=== PATIENT | male | born 1975 | race Caucasian/White ===

== ENCOUNTER 2016-05-20 15:01 | Emergency (ER) | payer SELFPAY ==
[~2016-05-20] VITALS: Ht 190.5 cm; Wt 100.0 kg
[2016-05-20] MEDS ORDERED: HYDROmorphone 1 mg/mL Inj IVPUSH ONE (15:10)
[2016-05-20] MEDS ORDERED: 0.9% Sodium Chloride 1,000 ML IV ONE (15:10)
[2016-05-20] MEDS ORDERED: Ondansetron 2 mg/mL 2 mL Inj IVPUSH ONE (15:10)
[2016-05-20] MEDS: HYDROmorphone 1 mg/mL Inj IVPUSH PRN ×3 (15:23→17:35)
[2016-05-20 15:27] VITALS: BP 134/75; PULSE 72; RESP 19; O2SAT 98
[2016-05-20 15:42] LABS: BASOPHILS % (AUTO) 0.4 % (0-3); EOSINOPHILS % (AUTO) 0.5 % (0-5); MONOCYTES % (AUTO) 8.4 % (4-12); Mean Corpuscular Hemoglobin 27.1 pg (27.0-35.0); Mean Corpuscular Volume 82.7 fL (81-100); NEUTROPHILS % (AUTO) 55.4 % (40-74); Platelet Count 505 bil/L (150-400)
[2016-05-20 16:10] LABS: Magnesium 1.7 mg/dL (1.6-2.6)
[2016-05-20 16:18] VITALS: BP 145/95; PULSE 110; RESP 16; O2SAT 99
[2016-05-20 17:35] VITALS: BP 136/89; PULSE 114; RESP 16; O2SAT 98
--- NOTE | 2016-05-20 17:35 | ED.REPORT ---
HPI-General Illness Date of Service May 20, 2016 ED Provider: Olga Whitley MD History of Present Illness: Mr. Tesfaye Vance is a 41 year old gentleman with PMH significant for epilepsy, ADD, and recurrent nephrolithiasis and temporary ureteral stenting on the left side 1 year ago, who presents to the [facility] ED with 1 hour history of sharp 10/10 left sided back pain now radiating to his left groin. His pain began yesterday and was dull in nature without colic. He took 600mg ibuprofen with some relief. He reports decreased intake of water the last 2 months due to new adderol perscription. He denies fever, chills, nausea, vomiting. He denies dysuria, hematuria or decreased UOP. Nursing Notes Stated Complaint: POSSIBLE KIDNEY STONE Chief Complaint: Male Abdominal Pain Nursing Notes Reviewed: Yes Allergies: Coded Allergies: Penicillins (Verified Allergy, Severe, 05/20/16) Scheduled Oxybutynin Chloride (Oxybutynin Chloride) 5 Mg Tablet 5 MG PO TID Scheduled PRN oxyCODONE-Acetaminophen 5-325 mg (oxyCODONE-Acetaminophen 5-325 mg) 1 Each Tablet 1-2 TAB PO Q6H PRN PRN For Pain General Time Seen by MD: 16:32 Chief Complaint Back pain (Similar to previous nephrolithiasis. ), Other Hx Obtained From: Patient Sudden in Onset?: Yes Onset Occurred: Just prior to arrival Context of Onset: Other Symptom Duration: Constant Location: : Back (Left side lower back. ) Quality: Sharp Radiation: : Abdomen (mildly migrating to left inguinal region. ) Past Medical History Past Medical History Epilepsy, well controlled with lamotrigine and vagel nerve stimulator implant. Childhood pyelonephritis. Ureteral stones with temporary stent. ADD, recent diagnosis 2-3 months ago. Past Surgical History Right shoulder rotator cuff tear. Smoking History Never Smoker Social History Alcohol Use: Denies alcohol use Drug Use: Other (occasional marijuana use. 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 Ambulatory Status Independent Review of Systems Full Review of Systems Male: Reports Flank pain (Left sided 10/10.) Musculoskeletal: Reports: Back pain Complete sys rev & neg: except as marked. Physical Exam Vital Signs Vital Signs Date Time Temp Pulse Resp B/P Pulse Ox O2 Delivery O2 Flow Rate FiO2 05/20/16 18:05 114 16 136/89 98 Room Air 05/20/16 17:35 114 16 136/89 98 Room Air 05/20/16 16:18 110 16 145/95 99 Room Air 05/20/16 15:27 36.4 72 19 134/75 98 Room Air Interpretation & Diagnostics Lab Results Interpretation Result Diagram: 05/20/16 1515 05/20/16 1515 Test 05/20/16 15:15 05/20/16 15:52 White Blood Count 7.3th/mm3 (3.8-10.1) Red Blood Count 4.91mil/mm3 (4.40-5.80) Hemoglobin 13.3g/dL (13.8-17.2) Hematocrit 40.6% (41.0-50.0) Mean Corpuscular Volume 82.7fL (81-100) Mean Corpuscular Hemoglobin 27.1pg (27.0-35.0) Mean Corpuscular Hemoglobin Concent 32.8% (32.0-37.0) Red Cell Distribution Width 14.3% (12.3-15.4) Platelet Count 505bil/L (150-400) Neutrophils (%) (Auto) 55.4% (40-74) Lymphocytes (%) (Auto) 35.2% (14-46) Monocytes (%) (Auto) 8.4% (4-12) Eosinophils (%) (Auto) 0.5% (0-5) Basophils (%) (Auto) 0.4% (0-3) Sodium Level 139mEq/L (134-144) Potassium Level 3.7mEq/L (3.5-5.2) Chloride Level 99mEq/L (97-108) Carbon Dioxide Level 25mmol/L (18-29) Blood Urea Nitrogen 14mg/dL (6-20) Creatinine 0.97mg/dL (0.76-1.27) Estimat Glomerular Filtration Rate 92mL/min (>59) Glucose Level 109mg/dL (60-99) Calcium Level 8.8mg/dL (8.5-10.1) Magnesium Level 1.7mg/dL (1.6-2.6) Total Bilirubin 0.3mg/dL (0.0-1.2) Aspartate Amino Transf (AST/SGOT) 17U/L (0-50) Alanine Aminotransferase (ALT/SGPT) 18U/L (0-44) Alkaline Phosphatase 56U/L (25-150) Total Protein 8.0g/dL (6.4-8.4) Albumin 4.3g/dL (3.4-5.0) Lipase 27U/L (13-60) Hold Urine Received (Received) Re-Eval/Medical Decision Med Decision/Clinical Course Mr. Monsivais is a otherwise healthy 41 year old gentleman with a pmh significant for recurrent ureteral stones and temporary stenting who presents with 1hour history of 10/10 sharp left sided flank pain. He denies fever, chills, nausea, vomiting, abdominal pain, dysuria, hematuria. 1. Acute ureteral stone, left side, present on admission. Active. - Afebrile, WBC wnl, no N/V. Most likely non obstructing at this time. - 1mg IV dilaudid Q 15min with decreasing pain from 10/10 to 6/10. - UA - trace leukocytes, large blood, and large hemoglobin. Chronic problems Epilepsy - lamtrigine ADD - adderall. Counseled Regarding: Diagnosis Discharge & Departure Shift Change Sign-Out Discussed Complaint(s): Yes Primary Impression: Nephrolithiasis Disposition: Home Discharge Condition All VS Reviewed: Yes Condition: Stable Patient Instructions: Acute Abdominal Pain (ED) Additional Instructions: 1. Acute ureteral stone, left side, present on admission. Active. - Afebrile, WBC wnl, no N/V. Most likely non obstructing at this time. - 1mg IV dilaudid Q 15min with decreasing pain from 10/10 to 6/10. total of 4 doses. - UA - trace leukocytes, large blood, and large hemoglobin. - Home with percocet 5mg/325mg #20, take 1-2 pills Q4-6 hours for pain relief as needed. - Increase oral intake of water. - continue home oxybutinin 5mg 3 times per day. #30. Referrals: NOPCP (PCP) [facility] Attending Statement Patient seen and examined. History of kidney stones or presentation. Opted to treat symptomatically. Should symptoms get worse develop a fever or not improve at all then will need to moves imaging and he will return to the emergency department if needed given referral for urology SCARLETT MCNALLY DO May 20, 2016 17:04 Olga Whitley MD May 20, 2016 17:35 Discharge & Departure Shift Change Sign-Out Discussed Complaint(s): Yes Disposition: Home Discharge Condition All VS Reviewed: Yes Condition: Stable Patient Instructions: Acute Abdominal Pain (ED) Additional Instructions: 1. Acute ureteral stone, left side, present on admission. Active. - Afebrile, WBC wnl, no N/V. Most likely non obstructing at this time. - 1mg IV dilaudid Q 15min with decreasing pain from 10/10 to 6/10. total of 4 doses. - UA - trace leukocytes, large blood, and large hemoglobin. - Home with percocet 5mg/325mg #20, take 1-2 pills Q4-6 hours for pain relief as needed. - Increase oral intake of water. - continue home oxybutinin 5mg 3 times per day. #30. Referrals: NOPCP (PCP) SCARLETT MCNALLY DO May 20, 2016 17:04 Olga Whitley MD May 20, 2016 17:35 SCARLETT MCNALLY DO May 20, 2016 17:04 Olga Whitley MD May 20, 2016 17:35
[2016-05-20] MEDS ORDERED: OXYC1TAB24 PO (17:38)
[2016-05-20] MEDS ORDERED: OXYB5TAB10 PO (17:38)
[2016-05-20 18:05] VITALS: BP 136/89; PULSE 114; RESP 16; O2SAT 98
== END 2016-05-20 18:06 | disposition home or self-care (01) ==
LOC: SED 15:01
DX: N20.0 Calculus of kidney (principal); F98.8 Other specified behavioral and emotional disorders with onset usually occurring in childhood and adolescence; Z87.442 Personal history of urinary calculi; Z88.0 Allergy status to penicillin
CPT/HCPCS: 36415; 80053; 83690; 83735; 85025; 96361; 96374; 96375; 96376; 99285; J1170; J1200; J2405; J7030

== ENCOUNTER 2016-05-22 19:56 | Emergency (ER) | payer SELFPAY ==
[~2016-05-22] VITALS: Ht 190.5 cm; Wt 100.0 kg
[~2016-05-22 19:56] MED LIST: OXYB5TAB10 PO; OXYC1TAB24 PO
[2016-05-22 19:58] VITALS: BP 147/113; PULSE 63; RESP 20; O2SAT 95
[2016-05-22] MEDS ORDERED: Ondansetron 2 mg/mL 2 mL Inj ONE (20:26)
[2016-05-22] MEDS ORDERED: 0.9% Sodium Chloride 1,000 ML ONE (20:28)
[2016-05-22] MEDS ORDERED: 0.9% Sodium Chloride 1,000 ML IV ONE (20:30)
[2016-05-22] MEDS ORDERED: Ondansetron 2 mg/mL 2 mL Inj IVPUSH PRN (20:30)
[2016-05-22] MEDS: HYDROmorphone 0.5 mg/0.5 mL iSecure Syringe IVPUSH PRN ×4 (20:48→22:32)
--- NOTE | 2016-05-22 21:18 | ED.REPORT ---
HPI-Back Pain Under 42 Date of Service May 22, 2016 ED Provider: Ganesh Ludwig DO History of Present Illness: Mr. Tesfaye Vance is a 41 year old gentleman with PMH significant for epilepsy, ADD, and recurrent nephrolithiasis and temporary ureteral stenting on the left side 1 year ago, who presents to the [facility] ED as a repeat visit. Sharp 10/10 left sided back pain now radiating to his left groin. His pain began 3 days ago. He took 600mg ibuprofen with some relief. He reports decreased intake of water the last 2 months due to new adderol perscription. He denies fever, chills, nausea, vomiting. He denies dysuria, hematuria or decreased UOP. Nursing Notes Stated Complaint: ABDOMINAL PAIN Chief Complaint: Male Abdominal Pain Nursing Notes Reviewed: Yes Allergies: Coded Allergies: Penicillins (Verified Allergy, Severe, 05/20/16) Scheduled Ciprofloxacin Hcl (Cipro (eq) 500 MG-6 Tab Prepack) 1 Pkg Pkg 1 PKG PO BID Oxybutynin Chloride (Oxybutynin Chloride) 5 Mg Tablet 5 MG PO TID Oxybutynin Chloride (Oxybutynin Chloride) 5 Mg Tablet 5 MG PO TID Scheduled PRN oxyCODONE-Acetaminophen 5-325 mg (oxyCODONE-Acetaminophen 5-325 mg) 1 Each Tablet 1-2 TAB PO Q6H PRN PRN For Pain General Time Seen by MD: 20:22 Chief Complaint Flank pain left Sudden in Onset?: Yes Onset Occurred: 5 - 8 hours ago Past Medical History Past Medical History Epilepsy, well controlled with lamotrigine and vagel nerve stimulator implant. Childhood pyelonephritis. Ureteral stones with temporary stent. ADD, recent diagnosis 2-3 months ago. Past Surgical History Right shoulder rotator cuff tear. 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 Ambulatory Status Independent Physical Exam Initial Vital Signs Vital Signs (First) Date Time Temp Pulse Resp B/P Pulse Ox O2 Delivery O2 Flow Rate FiO2 05/22/16 19:58 36.4 63 20 147/113 95 Room Air Interpretation & Diagnostics Lab Results Interpretation Test 05/22/16 20:20 05/22/16 20:23 Hold Purple Top Tube Received (Received) Hold Blue Top Tube Received (Received) Hold [place] Top Tube Received (Received) Urine Color Bloody (YELLOW) Urine Appearance Hazy (CLEAR,HAZY) Urine pH 6.0 (5.0-8.0) Urine Specific [place] 1.020 (1.003-1.035) Urine Protein 100mg/dL (NEG,TRACE) Urine Glucose (UA) Negativemg/dL (NEGATIVE) Urine Ketones Tracemg/dL (NEGATIVE) Urine Occult Blood Large (NEGATIVE) Urine Nitrite Negative (NEGATIVE) Urine Bilirubin Negative (NEGATIVE) Urine Urobilinogen Normalmg/dL (NORMAL) Urine Leukocyte Esterase Moderate (NEGATIVE) Urine RBC 11-50/hpf (0-2) Urine WBC 0-5/hpf (0-5) Urine Epithelial Cells None/hpf (NONE-MOD) Urine Crystals None seen (NONE SEEN) Urine Bacteria Few/hpf (NONE-FEW) Urine Hyaline Casts None/lpf (NONE) Urine Granular Casts None seen (NONE SEEN) Urine Waxy Casts None seen (NONE SEEN) Urine Red Blood Cell Casts None seen (NONE SEEN) Urine White Blood Cell Casts None seen (NONE SEEN) Urine Mucus None seen (None Seen) Urine Trichomonas None seen (NONE SEEN) Urine Yeast None (NONE SEEN) Urinalysis Comment Les carbonate rachelle Urine Culture Reflexed Indicated Hold Urine Received (Received) Re-Eval/Medical Decision Med Decision/Clinical Course 1. Acute Left sided flank pain - CT KUB w/out con - No obstructing stones present. - UA - Leukocyte esterase, Large amout blood, calcium carbonate crystals - likely passed stone with possible infection and Prior hx of pyelonephritis. Received 2Gm Rocephin IV here at the hospital, Home with 6 days Ciprofloxacin 500mg PO BID. - Received 30mg IV Toradol one time and 0.5 mg IV Dilaudid Q15min for severe pain. - Will take home Percocet 5 mg/325 mg PO Q4-6 hours pain #15. - Refill for 5mg Oxybutynin PO BID #30. - Received 4-8 mg IV Zofran for nausea. Discharge & Departure Shift Change Sign-Out Discussed Complaint(s): Yes Laboratory Evaluation: Lab evaluation discussed Imaging Studies: Imaging discussed Response to Therapy: Improved Impression: Primary Impression: Flank pain Disposition: Home All VS Reviewed: Yes Condition: Stable Patient Instructions: Acute Abdominal Pain (ED), Acute Hematuria (GEN) Additional Instructions: Your visit to [facility] emergency department for acute Left sided flank pain. We did a scan (CT KUB w/out contrast) that showed No obstructing stones. We also did a urine analysis that showed some infectious markers some blood and calcium carbonate crystals, which shows that you likely passed a stone with possible infection. - We gave you antibiotics by IV - 2Gm Rocephin IV here at the hospital, - We gave you a prescription for home antibiotics Ciprofloxacin 500mg by mouth twice a day for 6 days. - Received 4-8 mg IV Zofran for nausea. - For your pain you received 30mg IV Toradol one time and 0.5 mg IV Dilaudid Q15min. - Sent you take home Percocet 5 mg/325 mg by mouth every 4 - 6 hours pain x 15 pills. - We sent you refill for 5mg Oxybutynin to take by mouth twice x 30 pills. ---When taking your pain medications DO NOT drive, DO NOT take alcohol, DO NOT take extra acetaminophen (Tylenol). -- We highly recommend you follow up with your primary care physician, the [facility] residency clinic is a good option. -- We highly recommend you follow up with a urologist. Referrals: NOPCP (PCP) Shima Wheeler MD [facility] Attending Statement I personally took a history performed an exam. I concur with the note above. It is hard to say why he has flank pain and hematuria. Perhaps passed a small stone. CT scan was otherwise reassuring. We will place him on antibiotics due to the fact that he may have a hemorrhagic cystitis. If there is any renal involvement and Cipro is clearly indicated. We will culture his urine. Short course of Cipro. Short course of opiates for pain. Urology referral given. copies to: Shima Wheeler MD; [facility] SCARLETT MCNALLY DO May 22, 2016 20:23 Ganesh Ludwig DO May 23, 2016 17:58
[2016-05-22] MEDS ORDERED: _HYDROcodone/APAP 5-325 mg Tablet PO PRN (21:20)
[2016-05-22] MEDS ORDERED: OXYB5TAB10 PO (21:21)
--- NOTE | 2016-05-22 21:24 | DRSVH ---
PROCEDURE: CT KUB ([id number]) INDICATIONS: Left flank pain, hematuria TECHNIQUE: Noncontrast 5 mm thick sections acquired from the diaphragms to the symphysis. 5 mm thick coronal an d sagittal reformats were then performed. For radiation dose reduction, the following was used: aut omated exposure control, adjustment of mA and/or kV according to patient size. COMPARISON: None. FINDINGS: Image quality: Excellent. Lung bases: Lung bases are clear. Heart size is normal. Urinary system: There are 3 small nonobstructing right renal stones measuring up to 5 mm. There is also a small punctate nonobstructing left renal stone. No hydronephrosis or perinephric fat strandin g. There are bilateral areas of renal cortical thinning consistent with sequela of prior trauma, inf ection, or infarcts. A focus of associated dystrophic calcification is demonstrated on the left. Femi th ureters appear non-dilated throughout their expected courses. Bladder wall thickness is normal; n o calcified bladder stones. Other solid organs: There is mild focal fatty infiltration in the anterior left hepatic lobe. Gallbl adder appears within normal limits. The spleen is normal in size. Pancreas is normal in contours. N o adrenal nodules. Peritoneum and bowel: There is prominent gastric distention. Unenhanced bowel loops demonstrate nor mal wall thickness and caliber. No free fluid or air. Nodes and vessels: No retroperitoneal or mesenteric adenopathy by size criteria. Aorta and inferior vena cava are normal in caliber. Abdominal wall: No ventral hernias. Pelvis: No free pelvic fluid. No inguinal hernias or adenopathy. Bones: No suspicious bony lesions. No vertebral body compression fractures. IMPRESSION: 1. Bilateral nephrolithiasis without evidence of obstructive uropathy. 2. Bilateral areas of renal cortical thinning consistent with sequela of prior infection current inf arcts, or trauma. Dictated by: Glen Hdz M.D. on 05/22/2016 at 21:22 Approved by: Glen Hdz M.D. on 05/22/2016 at 21:22
[2016-05-22 21:49] LABS: APPEARANCE,URINE HAZY (CLEAR,HAZY); COLOR,URINE BLOODY (YELLOW)
[2016-05-22 21:50] LABS: OCCULT BLOOD,URINE LARGE (NEGATIVE); UROBILINOGEN,URINE NORMAL (NORMAL)
[2016-05-22] MEDS ORDERED: cefTRIAXone Inj 2,000 MG in IV Premix 1 EACH IV ONE (22:00)
[2016-05-22] MEDS ORDERED: CIPR-198 PO (22:10)
[2016-05-22 22:49] VITALS: BP 142/97; PULSE 92; RESP 16; O2SAT 98
[2016-05-22 22:50] VITALS: BP 142/97; PULSE 92; RESP 16; O2SAT 98
== END 2016-05-22 22:50 | disposition home or self-care (01) ==
LOC: SED 19:56
DX: R10.32 Left lower quadrant pain (principal); F90.9 Attention-deficit hyperactivity disorder, unspecified type; Z86.69 Personal history of other diseases of the nervous system and sense organs; Z87.442 Personal history of urinary calculi; Z96.0 Presence of urogenital implants; Z88.0 Allergy status to penicillin
CPT/HCPCS: 74176; 81000; 87086; 96361; 96365; 96375; 96376; 99285; J0696; J1170; J7030